=== PATIENT | male | born 2000 | race Caucasian/White ===

== ENCOUNTER 2021-07-30 07:47 | Day surgery (SDC) | payer BC ==
[~2021-07-30] VITALS: Ht 172.7 cm; Wt 79.0 kg
[~2021-07-30 07:47] MED LIST: 00186-0372-20 IH; ALLERGY SHOTS; CLARITIN; CLARITIN 1010 MG/TAB PO; NASONEX SPRAY; NASONEX SPRAY17 GM NS; PROVENTIL0.09 MG/A1 IH; SINGULAIR 5M5 MG/TAB PO; SINGULAIR5 MG PO; SYMBICORT1 AE2 IH
[2021-07-30] MEDS ORDERED: ZYRTEC 10MG10 MG PO (08:04)
[2021-07-30] MEDS ORDERED: PROBIOTIC BLEN1 EACH PO (08:04)
[2021-07-30 08:18] VITALS: BP 115/82; PULSE 57; TEMP 97.3
[2021-07-30] MEDS ORDERED: NORCO 325 MG-51 TAB PO (11:58)
[2021-07-30] MEDS ORDERED: MOTRIN 600600 MG/TAB PO (11:59)
[2021-07-30 12:25] VITALS: BP 129/72; PULSE 60; TEMP 97.2
--- NOTE | 2021-07-30 12:25 | NUR ---
Patient arrived back into [facility] from PACU. Mom at bedside. Mom states that Dr. Villareal already spoke with her. Report recieved from LETICIA Carballo. Patient doing well. Reporting pain 2-07/19. Patient awake and alert. Requesting water and applesauce at this time.
[2021-07-30 12:40] VITALS: BP 140/54; PULSE 81
--- NOTE | 2021-07-30 12:40 | NUR ---
Patient reports mild nausea with applesauce. PRN zofran given per MAR. Educated patient to give it 10-15 minutes to kick in. Reports pain 3-4/10, patient requesting pain medication. Educated patient to let the zofran kick in before giving pain medication.
[2021-07-30 12:55] VITALS: BP 123/66; PULSE 73
--- NOTE | 2021-07-30 12:55 | NUR ---
Patient reports nausea had subsided. PRN norco given per JUL. Patient tolerating applesauce well. Vital signs stable.
--- NOTE | 2021-07-30 13:00 | NUR ---
Patient went to restroom with stand by assist. Dressing intact. Drainage appearing on mesh underwear only and not on dressing. Patient able to void successful. Patient ambulated back into [facility]. Patient to get dressed with assistance from Mom.
[2021-07-30 13:03] VITALS: BP 129/72; PULSE 61
--- NOTE | 2021-07-30 13:10 | NUR ---
Patient got dressed. Went through discharge instructions [facility] mom and patient. Questions answered. Follow up appointment made for . Patient meets discharge criteria at this time. Patient escorted to patient entrance via wheelchair. Got into personal vehicle unassisted and left in the care of his mom, Elena.
== END 2021-07-30 13:20 | disposition home or self-care (01) ==
LOC: SDCO 07:47
DX: L05.01 Pilonidal cyst with abscess (principal); J30.2 Other seasonal allergic rhinitis; J45.909 Unspecified asthma, uncomplicated; Z79.899 Other long term (current) drug therapy; Z79.51 Long term (current) use of inhaled steroids
CPT/HCPCS: J0690; J1100; J1170; J2405; J2704; J2765; J3010; J7120